=== PATIENT | male | born 1950 | race Caucasian/White ===

== ENCOUNTER 2024-12-15 12:06 | Outpatient (CLI) | payer MEDICARE, SELFPAY ==
--- NOTE | ~2024-12-15 | US_ITS ---
US soft tissue groin RT 12/15/2024 12:35 Indication: Right lower quadrant pain Procedure: High-resolution Limited soft tissue ultrasound of the right groin Comparison: No prior studies for comparison. Findings: No evidence for hernia. There are normal-appearing right inguinal lymph nodes with fatty hi lum measuring up to 2 cm, likely reactive. Impression: 1: No evidence for hernia. Mildly prominent right inguinal lymph nodes, likely reactive. Reviewed, dictated and finalized at location B. Impression: 1: No evidence for hernia. Mildly prominent right inguinal lymph nodes, likely reactive.
--- OUTSIDE RECORDS SUMMARY | 2024-12-15 12:15 | XMS_ITS | Clinical Summary ---
Author Organization [facility] Address [address] 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 This disclosure is being madepursuant to the Care Everywhere program and may not contain all information available regarding this patient. Last updated 18.[facility] Allergies Active Allergy Reactions Criticality Noted Date Comments Sulfa Drugs Rash Medium 08/01/2016 Medications * Be aware that medications may not be up to date on this document. Alwaysverify current medications with the patient. 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 Gender Identity Not on file Sexual Orientation Not on file Last Filed Vital Signs Vital Sign Reading Time Taken Comments Blood Pressure 132/78 08/01/2016 10:24 AM 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 Pulse 82 08/01/2016 10:24 AM 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 Temperature 37.1 C (98.7 F) 08/01/2016 10:24 AM 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 Respiratory Rate - - Oxygen Saturation 97% 08/01/2016 10:24 AM 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 Inhaled Oxygen Concentration - - Weight 99.8 kg (220 lb) 08/01/2016 10:24 AM 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 Height 175.3 cm (5' 9) 08/01/2016 10:24 AM 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 Body Mass Index 32.49 08/01/2016 10:24 AM 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 Plan of Treatment Health Maintenance Due Date Last Done Comments COLOGUARD (AGES 45-75) - COL ON CA SCREENING 1950 COLON MONITORING 1950 COLONOSCOPY - COLON CA SCREENING 1950 CT COLONOGRAPHY - COLON CA SCREENING 1950 Colorectal Cancer Screening 1950 FIT - COLON CA SCREENING 1950 FLEX SIG - COLON CA SCREENING 1950 LIPID TESTING 1950 HEPATITIS C SCREENING 07/20/1968 DTAP/TDAP/TD VACCINES (1 - Tdap) 1969 PNEUMOCOCCAL VACCINE 50+ (1 of 1 - PCV) 2000 ZOSTER VACCINE (1 of 2) 2000 COVID-19 VACCINE (1 - 2023-2 5 season) 2024 DEPRESSION SCREENING 07/05/2024 INFLUENZA VACCINE (Season Ended) 2025 Respiratory Syncytial Virus (RSV) Vaccine Pt: or over 60 yrs (1 - 1-dose 75+ series) 2025 HEPATITIS B VACCINE Aged Out No longe r eligible based on patient's age to complete this topic HIB VACCINE Aged Out No longer eligi ble based on patient's age to complete this topic HPV VACCINE Aged Out No longer eligi ble based on patient's age to complete this topic MENINGOCOCCAL (Group B) VACC INE SHARED DECISION-MAKING Aged Out No longer eligibl e based on patient's age to complete this topic MENINGOCOCCAL GROUPS A/C/Y/W VACCINE Aged Out No longer eligible b ased on patient's age to complete this topic Insurance MEDICARE ANTHEM MEDICARE MEDICARE ANTHEM
--- OUTSIDE RECORDS SUMMARY | 2024-12-15 12:15 | XMS_ITS | Data Portability ---
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 Plan of Treatment Reminders Order Date Submit Date Provider Last Modified By Organization Details Last Modified Time Details Appointments None recorded. Lab TSH, ultra-sen sitive, serum 2024 025 ANA MARIA [facility], [address] [place] [address] 2, [place], [address], 5 11:14:10 HbA1c (hemoglob in A1c), blood 2024 025 ANA MARIA In-Office Order, Internal Use Only DO Not Attach Compendium DO Not Attach Compendium, Do Not Delete/merge, [id number] 11:57:35 CBC 2024 025 ANA MARIA [facility], [address] [place] [address], [facility] 2, [place], [address], 5 11:14:12 CMP, serum or plasma 2024 025 ANA MARIA [facility], [address] [facility], [facility] 2, [place], [address], 5 11:14:09 lipid panel, serum 2024 025 ANA MARIA [facility], [address] [facility], [facility] 2, [place], [address], 5 11:14:08 PSA, total, serum or plasma 2023 024 ANA MARIA [facility], [address] [facility], [facility] 2, [place], [address], 4 08:29:55 urinalysi s, dipstick 2023 024 [email or web address] In-Office Order, Internal Use Only DO Not Attach Compendium DO Not Attach Compendium, Do Not Delete/merge, [id number] 4 15:17:58 HbA1c (hemoglob in A1c), blood 2023 024 [facility] In-Office Order, Internal Use Only DO Not Attach Compendium DO Not Attach Compendium, Do Not Delete/merge, [id number] 4 10:11:00 CBC 2023 024 [facility], [address] [facility], [facility] 2, [place], [address], 4 11:17:33 CMP, serum or plasma 2023 024 [facility], [address] [facility], [facility] 2, [place], [address], 4 11:17:32 lipid panel, serum 2023 024 [facility], [address] [facility], [facility] 2, [place], [address], 4 11:17:31 Referral None recorded. Procedures None recorded. Surgeries None recorded. Imaging US, groin 2024 025 [facility], [address] [facility], [place], [address], 5 12:40:31 US, kidney 2023 024 [facility], [address] [place], [address], 4 11:17:29 Medication Orders lisinopri l 20 mg tablet 2024 025 [facility], [address] [place], [address], 5 11:29:26 glipizide 10 mg tablet 2024 025 [facility], [address] [place], [address], 5 11:29:24 metformin 500 mg tablet 2024 025 [facility], [address] [place], [address], 5 11:29:26 Ventolin HFA 90 mcg/actua tion aerosol inhaler 2023 024 [facility], [address] [place], [address], 4 15:17:57 metformin 500 mg tablet 2023 024 [facility], [address] [place], [address], 4 10:23:49 Cipro 500 mg tablet 2023 024 [facility], [address] [place], [address], 4 09:59:29 lisinopri l 20 mg tablet 2023 [facility] [address] [place], [address], 4 12:10:33 amoxicill in 875 mg tablet 2023 024 [email or web address] [address] [place], [address], 4 10:48:13 Patient TargetsNo targets recorded. Patient Instructions Encounter Date Encounter Id Patient Instructions Last Modified By Organization Details Last Modified Time 07/15/2023 [id number] A healthy lifestyle: care instructions jnanney Not available 07/15/2023 11:12:04 learning about high blood pressure jnanney Not available 07/15/2023 11:11:21 Acute Sinusitis: Care Instructions jnanney Not available 07/15/2023 11:11:21 08/20/2023 [id number] A healthy lifestyle: care instructions jnanney Not available 08/20/2023 11:10:22 Acute Sinusitis: Care Instructions jnanney Not available 08/20/2023 11:10:09 12/23/2023 [id number] A healthy lifestyle: care instructions jnanney Not available 12/23/2023 10:23:41 type 2 diabetes: care instructions jnanney Not available 12/23/2023 10:09:13 advance care planning: care instructions jnanney Not available 12/23/2023 10:23:41 preventing falls : care instructions jnanney Not available 12/23/2023 10:23:41 Quitting Tobacco : Care Instructions jnanney Not available 12/23/2023 10:23:41 Medicare Wellnes s Preventive Checklist jnanney Not available 12/23/2023 10:23:41 eating healthy foods: care instructions jnanney Not available 12/23/2023 10:23:41 AD8 Dementia Screening Interview jnanney Not available 12/23/2023 10:23:41 05/25/2024 [id number] A healthy lifestyle: care instructions jnanney Not available 05/25/2024 15:18:04 frequent urination: care instructions jnanney Not available 05/25/2024 15:17:57 back care and preventing injuries: care instructions jnanney Not available 05/25/2024 15:17:57 Reason for Referral None Reported. Results Created Date Observation Date Name Description Value Unit Range Abnormal Flag Note LastModifiedBy Organization Detail LastModifiedTime 12/23/19 24 12/24/2023 LIPID PANEL cholesterol, total 166 mg/dL 100-19 9 Not Available [facility] [address] [place], [address], 12/24/2023 11:17:31 12/23/19 24 12/24/2023 LIPID PANEL triglyceride s 120 mg/dL 0-149 Not Available [address], [address], 12/24/2023 11:17:31 12/23/19 24 12/24/2023 LIPID PANEL HDL cholesterol 48 mg/dL >39 Not Available [address], [address], 12/24/2023 11:17:31 12/23/19 24 12/24/2023 LIPID PANEL VLDL cholesterol magdalena 22 mg/dL 5-40 Not Available [address], [address], 12/24/2023 11:17:31 12/23/19 24 12/24/2023 LIPID PANEL LDL chol calc (nih) 96 mg/dL 0-99 Not Available [address], [address], 12/24/2023 11:17:31 12/23/19 24 12/24/2023 COMP. METAB OLIC PANEL (14) glucose 119 mg/dL 70-99 above high normal Not Available [address], [address], 12/24/2023 11:17:32 12/23/19 24 12/24/2023 COMP. METAB OLIC PANEL (14) BUN 26 mg/dL 8-27 Not Available [address], [address], 12/24/2023 11:17:32 12/23/19 24 12/24/2023 COMP. METAB OLIC PANEL (14) creatinine 0.94 mg/dL 0.76-1 .27 Not Available [address], [address], 12/24/2023 11:17:32 12/23/19 24 12/24/2023 COMP. METAB OLIC PANEL (14) eGFR 86 mL/mi n/1.7 3 >59 Not Available [address], [address], 12/24/2023 11:17:32 12/23/19 24 12/24/2023 COMP. METAB OLIC PANEL (14) BUN/creatini ne ratio 28 10-24 above high normal Not Available [address], [address], 12/24/2023 11:17:32 12/23/19 24 12/24/2023 COMP. METAB OLIC PANEL (14) sodium 138 mmol/ L 134-14 4 Not Available [address], [address], 12/24/2023 11:17:32 12/23/19 24 12/24/2023 COMP. METAB OLIC PANEL (14) potassium 5.1 mmol/ L 3.5-5. 2 Not Available [address], [address], 12/24/2023 11:17:32 12/23/19 24 12/24/2023 COMP. METAB OLIC PANEL (14) chloride 101 mmol/ L 96-106 Not Available [address], [address], 12/24/2023 11:17:32 12/23/19 24 12/24/2023 COMP. METAB OLIC PANEL (14) carbon dioxide, total 24 mmol/ L 20-29 Not Available [address], [address], 12/24/2023 11:17:32 12/23/19 24 12/24/2023 COMP. METAB OLIC PANEL (14) calcium 9.3 mg/dL 8.6-10 .2 Not Available [address], [address], 12/24/2023 11:17:32 12/23/19 24 12/24/2023 COMP. METAB OLIC PANEL (14) protein, total 6.5 g/dL 6.0-8. 5 Not Available [address], [address], 12/24/2023 11:17:32 12/23/19 24 12/24/2023 COMP. METAB OLIC PANEL (14) albumin 4.6 g/dL 3.8-4. 8 Not Available [address], [address], 12/24/2023 11:17:32 12/23/19 24 12/24/2023 COMP. METAB OLIC PANEL (14) globulin, total 1.9 g/dL 1.5-4. 5 Not Available [address], [address], 12/24/2023 11:17:32 12/23/19 24 12/24/2023 COMP. METAB OLIC PANEL (14) bilirubin, total 0.3 mg/dL 0.0-1. 2 Not Available [address], [address], 12/24/2023 11:17:32 12/23/19 24 12/24/2023 COMP. METAB OLIC PANEL (14) alkaline phosphatase 61 IU/L 44-121 Not Available [address], [address], 12/24/2023 11:17:32 12/23/19 24 12/24/2023 COMP. METAB OLIC PANEL (14) AST (SGOT) 25 IU/L 0-40 Not Available [address], [address], 12/24/2023 11:17:32 12/23/19 24 12/24/2023 COMP. METAB OLIC PANEL (14) ALT (SGPT) 31 IU/L 0-44 Not Available [address], [address], 12/24/2023 11:17:32 12/23/19 24 12/24/2023 CARDI OVASC ULAR REPOR T interpretati on Note Suppl ement al repor t is avail able. Not Available [address], [address], 12/24/2023 11:17:33 12/23/19 24 12/24/2023 CARDI OVASC ULAR REPOR T pdf . Not Available [address], [address], 12/24/2023 11:17:33 12/23/19 24 12/24/2023 CBC, PLATE LET, NO DIFFE RENTI AL WBC 5.7 x10e3 /uL 3.4-10 .8 Not Available [address], [address], 12/24/2023 11:17:33 12/23/19 24 12/24/2023 CBC, PLATE LET, NO DIFFE RENTI AL RBC 4.33 x10e6 /uL 4.14-5 .80 Not Available [address], [address], 12/24/2023 11:17:33 12/23/19 24 12/24/2023 CBC, PLATE LET, NO DIFFE RENTI AL hemoglobin 14.5 g/dL 13.0-1 7.7 Not Available [address], [address], 12/24/2023 11:17:33 12/23/19 24 12/24/2023 CBC, PLATE LET, NO DIFFE RENTI AL hematocrit 42.5 % 37.5-5 1.0 Not Available [address], [address], 12/24/2023 11:17:33 12/23/19 24 12/24/2023 CBC, PLATE LET, NO DIFFE RENTI AL MCV 98 fL 79-97 above high normal Not Available [address], [address], 12/24/2023 11:17:33 12/23/19 24 12/24/2023 CBC, PLATE LET, NO DIFFE RENTI AL MCH 33.5 pg 26.6-3 3.0 above high normal Not Available [address], [address], 12/24/2023 11:17:33 12/23/19 24 12/24/2023 CBC, PLATE LET, NO DIFFE RENTI AL MCHC 34.1 g/dL 31.5-3 5.7 Not Available [address], [address], 12/24/2023 11:17:33 12/23/19 24 12/24/2023 CBC, PLATE LET, NO DIFFE RENTI AL RDW 11.8 % 11.6-1 5.4 Not Available [address], [address], 12/24/2023 11:17:33 12/23/19 24 12/24/2023 CBC, PLATE LET, NO DIFFE RENTI AL platelets 161 x10e3 /uL 150-45 0 Not Available [address], [address], 12/24/2023 11:17:33 12/23/19 24 12/23/2023 HbA1c (hemo globi n A1c), blood HbA1c 6.5 Not Available Not Availa ble 12/23/2023 09:03:34 05/25/20 24 05/26/2024 PROST ATE-S PECIF IC AG prostate specific Ag 1.8 NG/mL 0.0-4. 0 Louie ECLIA metho dolog y. Accor ding to the Ameri can [employer]rolo gical Assoc iatio n, Serum PSA shoul d decre ase and remai n at undet ectab le level s after radic al prost atect duarte. The AUA defin es bioch emica l recur rence as an initi al PSA value 0.2 ng/mL or great er follo wed by a subse quent confi rmato ry PSA value 0.2 ng/mL or great er. Value s obtai lily with diffe rent assay metho ds or kits canno t be used inter mahoney eably . Resul ts canno t be inter prete d as absol chilango evide nce of the prese nce or absen ce of [facility] se. Not Available [facility] ([facility]) [address] [facility], [place], [address], 05/26/2024 08:29:55 05/25/20 24 05/25/2024 urina lysis , dipst ick Leukocytes Negati ve Not Available Not Available 15:16:29 05/25/20 24 05/25/2024 urina lysis , dipst ick Nitrite negati ve Not Available Not Available 15:16:29 05/25/20 24 05/25/2024 urina lysis , dipst ick Urobilinogen .2 Not Available Not A vailable 05/25/2024 15:16:29 05/25/20 24 05/25/2024 urina lysis , dipst ick Protein Negati ve Not Available Not Available 15:16:29 05/25/20 24 05/25/2024 urina lysis , dipst ick pH 5.5 Not Available Not Availa ble 05/25/2024 15:16:29 05/25/20 24 05/25/2024 urina lysis , dipst ick Blood Negati ve Not Available Not Available 15:16:29 05/25/20 05/25/2024 urina lysis , dipst ick Specific [place] 1.015 Not Available Not Available 05/06 15:16:29 05/25/20 24 05/25/2024 urina lysis , dipst ick Ketone Negati ve Not Available Not Available 15:16:29 05/25/20 24 05/25/2024 urina lysis , dipst ick Bilirubin Negati ve Not Available Not Available 15:16:29 05/25/20 24 05/25/2024 urina lysis , dipst ick Glucose Negati ve Not Available Not Available 15:16:29 05/25/20 24 05/25/2024 urina lysis , dipst ick Appearance Clear Not Available Not Maryan ilable 05/25/2024 15:16:29 05/25/20 24 05/25/2024 urina lysis , dipst ick Color Yellow Not Available Not Availa ble 05/25/2024 15:16:29 12/08/19 25 12/08/2024 LIPID PANEL cholesterol, total 174 mg/dL 100-19 9 Not Available [facility] [address] [place] [address], [address], 12/08/2024 11:14:08 12/08/19 25 12/08/2024 LIPID PANEL triglyceride s 147 mg/dL 0-[address] [facility] [address] [place] [address], [address], 12/08/2024 11:14:08 12/08/19 25 12/08/2024 LIPID PANEL HDL cholesterol 47 mg/dL >39 Not Available [facility] [address] [place], [address], 12/08/2024 11:14:08 12/08/19 25 12/08/2024 LIPID PANEL VLDL cholesterol magdalena 26 mg/dL 5-40 Not Available [facility] [address] [place], [address], 12/08/2024 11:14:08 12/08/19 25 12/08/2024 LIPID PANEL LDL chol calc ([facility]) 101 mg/dL 0-99 above high normal Not Available [address], [address], 12/08/2024 11:14:08 12/08/19 25 12/08/2024 COMP. METAB OLIC PANEL (14) glucose 144 mg/dL 70-99 above high normal Not Available [address], [address], 12/08/2024 11:14:12/08/19 25 12/08/2024 COMP. METAB OLIC PANEL (14) BUN 22 mg/dL 8-27 Not Available [address], [address], 12/08/2024 11:14:09 12/08/19 25 12/08/2024 COMP. METAB OLIC PANEL (14) creatinine 0.94 mg/dL 0.76-1 .27 Not Available [address], [address], 12/08/2024 11:14:09 12/08/19 25 12/08/2024 COMP. METAB OLIC PANEL (14) eGFR 85 mL/mi n/1.7 3 >59 Not Available [address], [address], 12/08/2024 11:14:09 12/08/19 25 12/08/2024 COMP. METAB OLIC PANEL (14) BUN/creatini ne ratio 23 10-24 Not Available [address], [address], 12/08/2024 11:14:09 12/08/19 25 12/08/2024 COMP. METAB OLIC PANEL (14) sodium 135 mmol/ L 134-14 4 Not Available [address], [address], 12/08/2024 11:14:12/08/19 25 12/08/2024 COMP. METAB OLIC PANEL (14) potassium 5.3 mmol/ L 3.5-5. 2 above high normal Not Available [address], [address], 12/08/2024 11:14:12/08/19 25 12/08/2024 COMP. METAB OLIC PANEL (14) chloride 98 mmol/ L 96-106 Not Available [address], [address], 12/08/2024 11:14:12/08/19 25 12/08/2024 COMP. METAB OLIC PANEL (14) carbon dioxide, total 22 mmol/ L 20-29 Not Available [address], [address], 12/08/2024 11:14:12/08/19 25 12/08/2024 COMP. METAB OLIC PANEL (14) calcium 9.6 mg/dL 8.6-10 .2 Not Available [address], [address], 12/08/2024 11:14:12/08/19 25 12/08/2024 COMP. METAB OLIC PANEL (14) protein, total 6.9 g/dL 6.0-8. 5 Not Available [address], [address], 12/08/2024 11:14:12/08/19 25 12/08/2024 COMP. METAB OLIC PANEL (14) albumin 4.7 g/dL 3.8-4. 8 Not Available [address], [address], 12/08/2024 11:14:12/08/19 25 12/08/2024 COMP. METAB OLIC PANEL (14) globulin, total 2.2 g/dL 1.5-4. 5 Not Available [address], [address], 12/08/2024 11:14:12/08/19 25 12/08/2024 COMP. METAB OLIC PANEL (14) bilirubin, total 0.5 mg/dL 0.0-1. 2 Not Available [address], [address], 12/08/2024 11:14:12/08/19 25 12/08/2024 COMP. METAB OLIC PANEL (14) alkaline phosphatase 60 IU/L 44-121 Not Available [address], [address], 12/08/2024 11:14:12/08/19 25 12/08/2024 COMP. METAB OLIC PANEL (14) AST (SGOT) 23 IU/L 0-40 Not Available [address], [address], 12/08/2024 11:14:12/08/19 25 12/08/2024 COMP. METAB OLIC PANEL (14) ALT (SGPT) 36 IU/L 0-44 Not Available [address], [address], 12/08/2024 11:14:12/08/19 25 12/08/2024 TSH RFX ON ABNOR MAL TO FREE T4 TSH 1.800 uIU/m L 0.450- 4.500 Not Available [address], [address], 12/08/2024 11:14:12/08/19 25 12/08/2024 CARDI OVASC ULAR REPOR T interpretati on Note Suppl ement al repor t is avail able. Not Available [address], [address], 12/08/2024 11:14:11 12/08/19 25 12/08/2024 CARDI OVASC ULAR REPOR T pdf . Not Available [facility] [address], [address], 12/08/2024 11:14:11 12/08/19 25 12/08/2024 CBC, PLATE LET, NO DIFFE RENTI AL WBC 6.0 x10e3 /uL 3.4-10 .8 Not Available [address], [address], 12/08/2024 11:14:12 12/08/19 25 12/08/2024 CBC, PLATE LET, NO DIFFE RENTI AL RBC 4.58 x10e6 /uL 4.14-5 .80 Not Available [address], [address], 12/08/2024 11:14:12 12/08/19 25 12/08/2024 CBC, PLATE LET, NO DIFFE RENTI AL hemoglobin 15.2 g/dL 13.0-1 7.7 Not Available [address], [address], 12/08/2024 11:14:12 12/08/19 25 12/08/2024 CBC, PLATE LET, NO DIFFE RENTI AL hematocrit 45.9 % 37.5-5 1.0 Not Available [address], [address], 12/08/2024 11:14:12 12/08/19 25 12/08/2024 CBC, PLATE LET, NO DIFFE RENTI AL MCV 100 fL 79-97 above high normal Not Available [address], [place], [address], 12/08/2024 11:14:12 12/08/19 25 12/08/2024 CBC, PLATE LET, NO DIFFE RENTI AL MCH 33.2 pg 26.6-3 3.0 above high normal Not Available [address], [address], 12/08/2024 11:14:12 12/08/19 25 12/08/2024 CBC, PLATE LET, NO DIFFE RENTI AL MCHC 33.1 g/dL 31.5-3 5.7 Not Available [address], [address], 12/08/2024 11:14:12 12/08/19 25 12/08/2024 CBC, PLATE LET, NO DIFFE RENTI AL RDW 12.3 % 11.6-1 5.4 Not Available [address], [address], 12/08/2024 11:14:12 12/08/19 25 12/08/2024 CBC, PLATE LET, NO DIFFE RENTI AL platelets 183 x10e3 /uL 150-45 0 Not Available [address], [address], 12/08/2024 11:14:12 12/08/19 25 12/07/2024 HbA1c (hemo globi n A1c), blood HbA1C 7.3 % Not Available Not Availa ble 12/07/2024 11:26:42 06/05/20 24 06/05/2024 , Elif rosa ation record ed. [facility] [address], [place], [address], 06/05/2024 14:18:42 Result Notes None recorded. Problems Name Problem SNOMED Code Status Onset Date Resolution Date Notes Provider Name and Address Organization Details Recorded Time Diabetes mellitus 18102186 Active Shon Hsieh PA-C Attn: Emma meadows,[address], [place], [address], [facility] 6 11:20:59 History of hypertension 009474472 Active Shon Hsieh PA-C Attn: Emma g,[address], [place], [address], [facility] 6 11:20:59 Problem Notes None recorded. Procedures Surgical History Date Name Laterality Status Provider Name and Address Organization Details Recorded Time 9 Colonoscopy completed Moraima Garcia [place] - [facility] 09/27/2018 11:36:52 Carpal tunnel surgery completed Katiana Lee [place] [facility] 03/07/2021 10:29:06 Imaging Results None recorded. Procedure Notes None recorded. Medical Equipment None Reported. Allergies Allergen ID Allergen Name Allergen Category Reaction Reaction Severity Criticality Documentation Date Start Date Code Code System Note Provider Name and Address Organization Details Recorded Time 011275 Substance with sulfonami de structure and antibacte rial mechanism of action (substanc e) medicatio n rash Not available Not available 11/04/2017 45034 8003 SNOMED KATE Post, [place] - [facility] 8 11:51:11 402939 valsartan medicatio n hives Not available Not available 07/15/2023 08766 RxNorm KATE [place], [place] - [facility] 4 12:09:56 Medications Name Sig Start Date Stop Date Status Note LastModified by Organization Details LastModified Time metformin 500 mg tablet Take 1 tablet by mouth three times daily 2024 active Not Available Not Available Not Avai lable ofloxacin 0.3 % eye drops INSTILL 1 DROP INTO AFFECTED EYE(S) 4 TIMES DAILY 12/07 completed Not Available Not Available Not Available lisinopril 20 mg tablet Take 1 tablet by mouth once daily 2024 active Not Available Not Available Not Avai lable glipizide 10 mg tablet Take 1 tablet by mouth once daily 2024 active Not Available Not Available Not Avai lable ciprofloxa mahad 500 mg tablet TAKE 1 TABLET BY MOUTH EVERY 12 HOURS FOR 10 DAYS 12/22 completed Not Available Not Available Not Available amoxicilli n 875 mg tablet TAKE 1 TABLET BY MOUTH EVERY 12 HOURS FOR 10 DAYS 08/20 completed Not Available Not Available Not Available Ventolin HFA 90 mcg/actuat ion aerosol inhaler Inhale 2 puffs every 4 hours by inhalatio n route as needed. 2023 active Not Available Not Available Not Avai lable valsartan 160 mg tablet Take 1 tablet every day by oral route for 90 days. 07/09 completed HIVES Not Available Not Available Not Available Vitals Date Recorded Body height Body mass index (BMI) Body weight Oxygen saturation Oxygen saturation in Arterial blood by Pulse oximetry Heart rate Systolic blood pressure Diastolic blood pressure Provider Name and Address Organization Details Last Updated DateTime 4 172.72 cm 34.4 kg/m2 987573. 88 g 98 % 98 % 58 /min 147 mm[Hg] 77 mm[Hg] Mariel Anderson MA [facility] 4 10:59:15 Date Recorded Body height Body mass index (BMI) Body weight Body temperature Oxygen saturation Oxygen saturation in Arterial blood by Pulse oximetry Heart rate Respiratory rate Systolic blood pressure Diastolic blood pressure Provider Name and Address Organization Details Last Updated DateTime 4 172.72 cm 34.2 kg/m2 299177. 28 g 97.7 [degF] 99 % 99 % 77 /min 16 /min 116 mm[Hg] 72 mm[Hg] Shannon Longo [place] - [facility] 4 10:50:32 Date Recorded Body height Body mass index (BMI) Body weight Oxygen saturation Oxygen saturation in Arterial blood by Pulse oximetry Heart rate Systolic blood pressure Diastolic blood pressure Provider Name and Address Organization Details Last Updated DateTime 5 172.72 cm 33.8 kg/m2 390812. 51 g 97 % 97 % 48 /min 139 mm[Hg] 70 mm[Hg] Katiana Lee MA [place] - [facility] 5 11:07:31 Date Recorded Body height Oxygen saturation Oxygen saturation in Arterial blood by Pulse oximetry Heart rate Body mass index (BMI) Body weight Systolic blood pressure Diastolic blood pressure Provider Name and Address Organization Details Last Updated DateTime 4 172.72 cm 98 % 98 % 68 /min 33.3 kg/m2 88100.4 3 g 124 mm[Hg] 60 mm[Hg] Mariel Anderson MA [facility] 4 10:02:30 Date Recorded Body height Body mass index (BMI) Body weight Oxygen saturation Oxygen saturation in Arterial blood by Pulse oximetry Heart rate Systolic blood pressure Diastolic blood pressure Provider Name and Address Organization Details Last Updated DateTime 4 172.72 cm 34.1 kg/m2 864469. 69 g 98 % 98 % 51 /min 153 mm[Hg] 75 mm[Hg] Katiana eLe [place] - [facility] 4 15:02:27 Social History Question Answer Notes LastModified by Organizat ion Details LastModified Time Tobacco Smoking Status Never Smoker Hannah Montgomery MA [place], [place] - [facility] 02/21/2015 11:41:23 What Is Your Level Of Caffeine Consumption? Moderate Information not available 03/07/2021 In The 14 Days Before Symptom Onset, Have You Had Close Contact With A Laboratory-confi rmed COVID-19 While That Case Was Ill? No Information not available 03/07/2021 In The 14 Days Before Symptom Onset, Have You Had Close Contact With A Person Who Is Under Investigation For COVID-19 While That Person Was Ill? No Information not available 03/07/2021 Have You Been To An Area Known To Be High Risk For COVID-19? No Information not available 03/07/2021 What Type Of Diet Are You Following? DIABETIC Information not available 02/03/2022 Are There Any Guns Present In Your Home? No Information not available 01/14/2023 What Was The Date Of Your Most Recent Tobacco Screening? 12/07/2024 Information not available 12/07/2024 What Is Your Relationship Status? Information not available 03/07/2021 Do You Use Your Seat Belt Or Car Seat Routinely? Yes Information not available 01/14/2023 Do You Have Smoke And Carbon Monoxide Detectors In Your Home? Yes Information not available 03/07/2021 Are You Passively Exposed To Smoke? No Information not available 03/07/2021 Do You Use Sunscreen Routinely? No Information not available 01/14/2023 Has Tobacco Cessation Counseling Been Provided? No [email or web address] Information not available 02/09/2019 On What Date Was Tobacco Cessation Counseling Provided? 12/07/2024 [email or web address] Answered No To The Tobacco Cessation Counseling Provided Question On 02/09/2019. Information not available 12/07/2024 Sex: Male Functional Status Question Answer Note LastModified by Organizat ion Details LastModified Time Do you use any illicit or recreational drugs? No Information not available 03/07/2021 Do you or have you ever used any other forms of tobacco or nicotine? No Information not available 03/07/2021 What is your level of alcohol consumption? Occasional Information not available 03/07/2021 Are you currently employed? No [email or web address] Information not available 02/13/2020 Are you able to care for yourself? Yes Information n ot available 03/07/2021 Mental Status Question Answer Note LastModified by Organization D etails LastModified Time Do you feel stressed (tense, restless, nervous, or anxious, or unable to sleep at night)? [id number] Information not available 03/07/2021 Family History Relationship Description Onset Age of this Age Resolved Age Notes LastModified by Organization Details LastModified Time Mother Disorder of thyroid gland [email or web address] Not available 02/02 11:08:17 Mother History of hypertension [email or web address] Not available 0 02/17/2016 11:08:17 Medical History Condition Response Coronary Artery Disease N Other N Atrial Fibrillation N High Blood Pressure Y Depression N COPD N Blood Clots N Anxiety Disorder N Muscle, Joint, or Bone Problems N Acid Reflux (GERD) N Cancer N Stroke N ADHD N High Cholesterol N Liver Disease N Schizophrenia N Headaches N Thyroid Problems N Kidney or Bladder Problems N GI Problems N Eating Disorder N Skin Problems N Anemia N Heart Attack (PA) N Diabetes Y Seizures/Epilepsy N Asthma N Allergies N Substance Abuse N Hepatitis N Heart Failure N Osteoporosis N Immunizations Vaccine Type Date Status Note Provider Nam e and Address Organization Details Recorded Time COVID-19, mRNA, LNP-S, PF, 100 mcg/0.5mL dose or 50 mcg/0.25mL dose 1 completed Peewee Villasenor null, [place] - [facility] 11/29/2020 14:30:07 COVID-19, mRNA, LNP-S, PF, 100 mcg/0.5mL dose or 50 mcg/0.25mL dose 1 completed Peewee Vill[place] [facility] 11/29/2020 14:30:27 Influenza, split virus, quadrivalent, preservative 1 completed Sandra Castillo [place], [place] [facility] 08/08/2020 11:17:48 pneumococcal polysaccharide PPV23 1 completed Katiana [place] [facility] 03/07/2021 11:46:46 Influenza, split virus, quadrivalent, preservative 1 completed Samantha Meng [place] [facility] 04/24/2021 10:55:06 COVID-19, mRNA, LNP-S, PF, 100 mcg/0.5mL dose or 50 mcg/0.25mL dose 2 completed Katiana [place] [facility] 07/15/2021 15:43:41 Influenza, high-dose, quadrivalent, PF 2 completed Katiana [place] [facility] 05/05/2022 17:35:59 COVID-19, mRNA, LNP-S, bivalent, PF, 30 mcg/0.3 mL dose 2 completed Katiana [place] [facility] 05/19/2022 17:35:52 Tdap 2 completed Katiana [place] [facility] 05/19/2022 17:35:52 Influenza, high-dose, quadrivalent, PF 3 completed Mariel Anderson [place] [facility] 07/01/2023 11:28:50 Past Encounters Encounter ID Performer Location Encounter Start Date Encounter Closed Date Diagnosis/Indication Diagnosis SNOMED-CT Code Diagnosis ICD10 Code Diagnosis Note [id number] MD Marta Eagle [address] [place] [address] 02/21/2015 11:38:07 02/21/2015 12:25:49 Diabetes mellitus [id number] Shon Hsieh PA-C [facility] [address] [place] [address] 02/17/2016 10:44:53 02/17/2016 11:29:43 Diabetes mellitus 83458299 E11.9 History of hypertension 831754211 Z86.79 [id number] Shon Hsieh PA-C [facility] [address] [place] [address] 09/23/2016 11:10:12 09/23/2016 12:23:13 Acute maxillary sinusitis 86398539 J01.01 [id number] Dejan Gilbert MD [facility] [address] [place] [address] 02/19/2017 10:24:59 02/19/2017 15:13:52 Diabetes mellitus 83012304 E11.9 Essential hypertension 33301389 I10 [id number] Dejan Gilbert MD [facility] [address] [place] [address] 11/04/2017 11:41:00 11/04/2017 12:07:31 Acute frontal sinusitis 14959482 J01.11 Acute maxi llary sinusitis 82982446 J01.01 [id number] Dejan Gilbert MD [facility] [address] [place] [address] 02/10/2018 10:44:09 02/10/2018 11:21:44 Essential hypertension 21697528 I10 Type 2 luciano betes mellitus without complication 079904319 E11.9 Screening for malignant neoplasm of colon 452951439 Z12.11 Screening for malignant neoplasm of prostate 812432748 Z12.5 Diabetes mellitus 517991 09 E11.9 [id number] Dejan Gilbert MD [facility] [address] [place] [address] 02/24/2018 10:53:01 02/24/2018 11:54:40 Diabetes mellitus 55903953 E11.9 [id number] Shon Hsieh PA-C [facility] [address] [place] [address] 02/09/2019 09:55:20 02/10/2019 14:27:47 Diabetes mellitus 32873914 E11.9 History of hypertension 324821628 Z86.79 Screening for malignant neoplasm of prostate 926825867 Z12.5 [id number] Shon Hsieh PA-C [facility] [address] [place] [address] 09/12/2019 15:14:05 09/12/2019 16:23:30 Acute maxillary sinusitis 55925121 J01.01 Asthmatoid wheeze 924461 01 R06.2 [id number] Shon Hsieh PA-C [facility] [address] [place] [address] 02/13/2020 10:28:27 02/13/2020 12:40:20 Diabetes mellitus 02266414 E11.9 Type 2 luciano betes mellitus without complication 056715546 E11.9 Screening for malignant neoplasm of prostate 490383548 Z12.5 [id number] Shon Hsieh PA-C [facility] [address] [place] [address] 08/08/2020 11:15:17 08/15/2020 13:27:57 Administration of influenza vaccine 06283654 Z23 [id number] Dejan Gilbert MD [facility] [address] [place] [address] 03/07/2021 10:20:33 03/11/2021 06:03:49 Essential hypertension 08603688 I10 Type 2 luciano betes mellitus without complication 797963296 E11.9 Screening for malignant neoplasm of prostate 738437673 Z12.5 Administra tion of pneumococcal vaccine 63118989 Z23 [id number] Shon Hsieh PA-C [facility] [address] [place] [address] 04/24/2021 10:26:34 04/24/2021 11:21:35 Active or passive immunization 322224214 Z23 [id number] Shon Hsieh PA-C [facility] [address] [place] [address] 07/15/2021 14:21:55 07/22/2021 09:47:00 Administration of SARS-CoV-2 mRNA vaccine 9302855040 Z23 [id number] Dejan Gilbert MD [facility] [address] [place] [address] 08/21/2021 10:38:33 08/21/2021 11:19:45 Acute maxillary sinusitis 22312813 J01.01 [id number] Shon Hsieh PA-C [facility] [address] [place] [address] 02/03/2022 10:21:37 02/03/2022 12:47:07 Obesity 310690877 E66.9 Overweight 571160641 E66 .3 Adult heal th examination 882297990 Z00.00 [id number] Shon Hsieh PA-C [facility] [address] [place] [address] 05/05/2022 17:02:48 05/05/2022 17:48:16 Administration of influenza vaccine 45508281 Z23 [id number] Shon Hsieh PA-C [facility] [address] [place] [address] 05/19/2022 16:51:46 05/19/2022 17:46:02 Administration of SARS-CoV-2 mRNA vaccine 0705152014 23 [id number] Shon Hsieh PA-C [facility] [address] [place] [address] 05/19/2022 16:56:03 05/19/2022 17:46:32 Active or passive immunization 090865082 Z23 [id number] Dejan Gilbert MD [facility] [address] [place] [address] 01/14/2023 10:42:19 01/19/2023 11:51:55 Type 2 diabetes mellitus without complication 681382834 E11.9 Overweight 851976260 E66 .3 [id number] Shon Hsieh PA-C [facility] [address] [place] [address] 03/24/2023 11:16:56 03/29/2023 09:54:56 Type 2 diabetes mellitus without complication 922422775 E11.9 Essential hypertension 13716220 I10 Hyperlipidemia 57752611 E78.5 [id number] Shon Hsieh PA-C [facility] [address] [place] [address] 07/01/2023 10:25:25 07/06/2023 13:58:36 Administration of influenza vaccine 69259496 Z23 Essential hypertension 35180011 I10 Acute maxi llary sinusitis 41274068 J01.01 [id number] Shon Hsieh PA-C [facility] [address] [place] [address] 07/15/2023 10:51:49 07/16/2023 11:52:15 Essential hypertension 77056311 I10 Acute maxi llary sinusitis 81095612 J01.01 Diabetes mellitus 660091 09 E11.9 Overweight 933718184 E66 .3 [id number] Shon Hsieh PA-C [facility] [address] [place] [address] 08/20/2023 10:33:01 08/24/2023 10:10:28 Acute maxillary sinusitis 49168058 J01.01 Overweight 599752051 E66 .3 [id number] Dejan Gilbert MD [facility] [address] [place] [address] 12/23/2023 09:55:11 12/24/2023 14:50:42 Type 2 diabetes mellitus without complication 359145704 E11.9 Adult [facility] th examination 248431048 Z00.00 Health Risk Assessment collected and reviewed Diabetes mellitus 440456 09 E11.9 Overweight 592766539 E66 .3 [id number] Dejan Gilbert MD [facility] [address] [place] [address] 05/25/2024 14:49:16 05/29/2024 11:26:57 Asthmatoid wheeze 21501269 R06.2 Low back pain 535878213 M54.59 Increased frequency of urination 164825364 R35.0 Overweight 119778307 E66 .3 [id number] Dejan Gilbert MD [facility] [address] [place] [address] 12/07/2024 10:49:25 12/08/2024 17:13:43 Diabetes mellitus 43051560 E11.9 Essential hypertension 45830234 I10 Right inguinal pain 1562 833982 9356989 R10.31 Family his tory of Thyroid disorder 136186465 Z83.49 Health Concerns Section Related Observation LastModified by Organization Crystal matta LastModified Time None Recorded Concern Status LastModified by Organization Details LastModified Time None Recorded Advance Directives Directive None Recorded Payers Insurance Date Sequence Insurance Name Policy Number Policy Coto Covered Member ID Coto Member ID Guarantor Name 12/04/2024 1 [place] Valentin Glez [id number] Valentin Glez 12/23/2023 [place] Valentin Glez [id number] Valentin Glez 02/17/2016 1 *SELF PAY* Sunil Glez 12/04/2024 2 [id number] [id number] Valentin Glez [id number] Valentin Glez 12/23/2023 1 [place]in Glez [id number] Valentin Glez 12/23/2023 [place] Valentin Glez [id number] Valentin Glez 12/04/2024 [place] Valentin Glez [id number] Valentin Glez Notes Date Note Type Note Provider Name and Address Organization Details Recorded Time 07/15/2023 text/html new bp med cause d a rash...valsartan. ..went back to lisotilio Hsieh PA-C Attn: Accounting,[address] [place], [address], [facility] 07/15/2023 11:14:29 08/20/2023 text/html sinus infection symptoms..amox not getting it...viral tests are negative Shon Hsieh PA-C Attn: [address] [place], [address], [facility] 08/20/2023 11:10:54 12/23/2023 text/html yearly check up no complaints...a1c is 6.5...metformin tid...this regimen is helping his blood sugar Shon Hsieh PA-C Attn: Accounting,[address] [facility] [address], [place], [address], [facility] 12/23/2023 10:24:51 05/25/2024 text/html rt side back arvind n for 3 weeks...no hx of kidney stones...usually wakes him up 2-3 times during the night...reports slight burning with urination...says all in all the symptoms are resolving... Shon Hsieh PA-C Attn: Accounting,[address] [facility] [address], [place], [address], [facility] 05/25/2024 15:21:46 12/07/2024 text/html medication renewal..says he is trying hard with diet..checks BS at home generally below 150..reports fa,nikos hx of hypothyroid...he says his pulse is dropping..renal ultrasound was nothing acute but does describe testicular pain with lifting... Shon Hsieh PA-C Attn: Accounting,[address] [facility] [address], [place], [address], [facility] 12/07/2024 11:32:19
--- OUTSIDE RECORDS SUMMARY | 2024-12-15 12:15 | XMS_ITS | Clinical Summary ---
Author Organization [facility] Address [address] [place] [address] Phone Care Team Providers Care Elementary Assistant Principal Name Role Phone CarlaSridhar doe Primary Care Provider [phone] Allergies Active Allergy Reactions Criticality Noted Date Comments Sulfa Antibiotics Rash Medium 09/13/2018 Medications metFORMIN (GLUCOPHAGE) 500 MG TabletIndicati ons:takes at noon and evening Take 500 mg by mouth 3 times daily. Indications: takes at noon and evening Active Vitamin B-6 (PYRIDOXINE) 100 MG Tablet Take 100 mg by mouth daily. Active glipiZIDE (GLUCOTROL) 10 MG Tablet Take 10 mg by mouth daily. Active lisinopril (PRINIVIL, ZESTRIL) 20 MG Tablet Take 20 mg by mouth daily. Active fluticasone (FLONASE) 50 MCG/ACT Suspension 2 Sprays by Nasal route as needed for Rhinitis or Allergies. 7 Active albuterol 108 (90 Base) MCG/ACT Aerosol Solution take 2 Puffs by inhalation every 6 hours as needed for Wheezing. 7 Active ibuprofen (MOTRIN) 200 MG Tablet Take 200 mg by mouth See Admin Instructions. TIW PRN Active ofloxacin (OCUFLOX) 0.3 % Solution Place 1 Drop in affected eye(s) 4 times daily. 5 mL 5 Active glipiZIDE (GLUCOTROL) 5 MG Tablet Take 5 mg by mouth daily. 11/21/19 25 Discontinu ed(Therapy completed) lisinopril (PRINIVIL, ZESTRIL) 10 MG Tablet Take 10 mg by mouth daily. 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 Eye swelling, right (Primary Dx) Discharge Disposition: Discharged to home or Selfcare 11/20/2024 Travel from Last 3 Months Immunizations Immunization Administration Dates Next Due Influenza, High-dose, Quadrivalent 07/01/2023, Influenza, Injectable, Quadrivalent 04/24/2021,0 08/08/2020 Pneumococcal Vaccine Adult - 23 Valent TDAP Vaccine 05/19/2022 Family History Medical History Relation Name Comments Cancer Brother kidney, lung No Known Problems Father Hypertension Mother Relation Name Status Comments Brother Alive Father Mother Social History Tobacco Use Types Packs/Day Years Used Date Smoking Tobacco: Never Smokeless Tobacco: Never Alcohol Use Standard Drinks/Week Comments Yes 1 (1 standard drink = 0.6 oz pur e alcohol) Occasionally Sex and Gender Information Value Date Recorded Sex Assigned at Not on file Legal Sex Male 9:47 PM CDT Gender Identity Not on file Sexual Orientation Not on file Last Filed Vital Signs Vital Sign Reading Time Taken Comments Blood Pressure 140/74 11/20/2024 12:11 PM CDT Pulse 50 11/20/2024 12:11 PM CDT Temperature 36.9 C (98.4 F) 11/20/2024 12:11 PM CDT Respiratory Rate 16 11/20/2024 12:11 PM CDT Oxygen Saturation 96% 11/20/2024 12:11 PM CDT Inhaled Oxygen Concentration - - Weight 99.8 kg (220 lb) 11/20/2024 12:11 PM CDT Height 175.3 cm (5' 9) 09/13/2018 9:00 AM CDT Body Mass Index 32.49 09/13/2018 9:00 AM CDT Plan of Treatment Health Maintenance Due Date Last Done Comments Hepatitis C Virus (HCV) Screening 1950 Cologuard 1995 Immunochemical Fecal Occult Blood 1995 Zoster Immunization (1 of 2) 2000 Pneumococcal Immunization (50+ years) (2 of 2 - PCV) 03/07/2022 03/07/2021 Colonoscopy 09/28/2023 09/27/2018 Colorectal Cancer Screening 09/28/2023 SARS-COV-2 Immunization ( season) 2024 05/19/2022, 07/15/2021, 10/04/2020, Additional history exists Influenza Immunization (Season Ended) 2025 07/01/2023, 05/05/2022, 04/24/2021, Additional history exists Respiratory Syncytial Virus (RSV) Immunization (Adult) (1 - 1-dose 75+ series) 2025 Td Immunization Every 10 Years (Adults With 1 Tdap) 05/19/2032 05/19/2022 Pneumococcal Immunization Combined Discontinued 03/07/2021 DTaP/Tdap/Td Immunization Discontinued 05/19/2022 TdaP Immunization Discontinued 05/19/2022 Hepatitis B Immunization Aged Out No longer eligible based on patient's age to complete this topic Human Papillomavirus (HPV) Immunization Aged Out No longer eligible based on patient's age to complete this topic Meningococcal Immunization (ACWY) Aged Out No longer eligible based on patient's age to complete this topic Rotavirus Immunization Aged Out No lo nger eligible based on patient's age to complete this topic Insurance MEDICARE [facility] Care Teams Elementary Assistant Principal Relationship Specialty Start Date End Date Sridhar Hsieh PAC [address] [place] [address] PCP - General Physician Director Of Strategic Initiatives 03/12/16
== END 2024-12-15 12:07 | disposition home or self-care (01) ==
PROVIDERS: PCP Physician Assistant; Visit Provider Physician Assistant
DX: R10.31 Right lower quadrant pain (principal); R59.0 Localized enlarged lymph nodes
CPT/HCPCS: 76882